=== PATIENT | female | born 1955 | race Caucasian/White ===

== ENCOUNTER 2019-05-08 08:30 | Outpatient (CLI) | payer BC, SELFPAY ==
[2019-05-08 09:58] LABS: Anion Gap 10.2 mmol/L (3-11); BUN 13 mg/dL (7-18); CO2 27.8 mmol/L (21.0-32.0); CREATININE 0.68 mg/dL (0.55-1.02); Calcium 8.6 mg/dL (8.5-10.1); Calculated LDL 113; Chloride 101 mmol/L (98-107); Cholesterol 192 mg/dL (50-200); Glucose 94 mg/dL (70-100); HDL Cholesterol 58 mg/dL (40-60); Potassium 4.1 mmol/L (3.5-5.1); Sodium 139 mmol/L (136-145); Triglyceride 109 mg/dL (30-150)
== END 2019-05-08 08:50 ==
PROVIDERS: PCP Family Medicine; Visit Provider Family Medicine
DX: I10 Essential (primary) hypertension (principal); Z00.00 Encounter for general adult medical examination without abnormal findings
CPT/HCPCS: 36415; 80048; 80061; 83721

== ENCOUNTER 2019-07-31 00:36 | Outpatient (CLI) | payer OTHER, SELFPAY ==
--- NOTE | 2019-07-31 14:56 | DI.US_ITS ---
SYMPTOM/DIAGNOSIS: BRADYCARDIA AND HYPOTENSION R43, TIA, DIZZINESS, GIDDINESS BILATERAL DUPLEX CAROTID ULTRASOUND: 07/31 Duplex evaluation of the carotid circulation was performed according to the usual protocol. There is minimal visible atheromatous plaque in the carotid bulb on the right. There are normal flow velocities in common internal and external carotid arteries bilaterally. There is bilateral antegrade vertebral flow. CONCLUSION: No evidence of a hemodynamically significant carotid stenosis.
== END 2019-07-31 00:56 ==
PROVIDERS: PCP Family Medicine; Visit Provider Family Medicine
DX: G45.9 Transient cerebral ischemic attack, unspecified (principal); R42 Dizziness and giddiness; R00.1 Bradycardia, unspecified; I95.9 Hypotension, unspecified
CPT/HCPCS: 93880

== ENCOUNTER 2019-08-04 01:32 | Outpatient (CLI) | payer OTHER, SELFPAY ==
--- NOTE | 2019-08-04 10:42 | MERGE_ITS ---
*[facility]* *[facility]* [address] [place] [address] Date of study: 08/04/2019 Transthoracic Echocardiography M-mode, complete 2D, complete spectral Doppler, and color Doppler *STUDY CONCLUSIONS* Summary: 1. Left ventricle: The cavity size was normal. Wall thickness was normal. Systolic function was at the lower limits of normal. The estimated ejection fraction was 50-55%. Wall motion was normal; there were no regional wall motion abnormalities. 2. Mitral valve: Mildly thickened leaflets. There was mild to moderate regurgitation. 3. Right ventricle: The cavity size was normal. Wall thickness was normal. Systolic function was normal. 4. Tricuspid valve: There was moderate regurgitation. *PATIENT PRESENTATION* Height: 160cm (63in ) S/D Pressure: 141 / 84 Weight: 73.5kg (161.7lb ) BSA: 1.83m^2 Test start time: 10:45 AM. Test stop time: 11:45 AM. PERFORMING Unknown CONSULTING Jorge A Blackmon ORDERING Jorge A Blackmon REFERRING Jorge A Blackmon PERFORMING [facility] DESIGN ENGINEERING MANAGER Argenis Kim *PROCEDURE DATA* Procedure information: This study was interpreted by [facility]. Pertinent images and digital data are archived for permanent storage and are available for subsequent review. Comparison was made to the study of 12/16/2012. Study status: Routine. Transthoracic echocardiography. M-mode, complete 2D, complete spectral Doppler, and color Doppler. A Transthoracic Echocardiogram was performed. Scanning was performed from the parasternal, apical, subcostal, and suprasternal notch acoustic windows. Images were obtained using an [employer] SC 2000 cardiac ultrasound machine. Image quality was adequate. Study completion: The patient tolerated the procedure well. There were no complications. History: PMH: Bradycardia, Palpitations, Hypotension. *CARDIAC ANATOMY* Left ventricle: The cavity size was normal. Wall thickness was normal. Systolic function was at the lower limits of normal. The estimated ejection fraction was 50-55%. Wall motion was normal; there were no regional wall motion abnormalities. Aortic valve: Trileaflet; normal thickness leaflets. Mobility was not restricted. Doppler: Transvalvular velocity was within the normal range. There was no stenosis. There was no significant regurgitation. VTI ratio of LVOT to aortic valve: 0.78. Valve area (VTI): 2.1cm^2. Indexed valve area (VTI): 1.2cm^2/m^2. Peak velocity ratio of LVOT to aortic valve: 0.68. Valve area (Vmax): 1.9cm^2. Indexed valve area (Vmax): 1cm^2/m^2. Mean velocity ratio of LVOT to aortic valve: 0.66. Valve area (Vmean): 1.8cm^2. Indexed valve area (Vmean): 1cm^2/m^2. Mean gradient (S): 3mm Hg. Peak gradient (S): 6.1mm Hg. Aorta: Aortic root: The aortic root was normal in size. Mitral valve: Mildly thickened leaflets. Mobility was not restricted. Doppler: Transvalvular velocity was within the normal range. There was no evidence for stenosis. There was mild to moderate regurgitation. Valve area by pressure half-time: 5cm^2. Indexed valve area by pressure half-time: 2.7cm^2/m^2. Peak gradient (D): 3.2mm Hg. Left atrium: The atrium was normal in size. Right ventricle: The cavity size was normal. Wall thickness was normal. Systolic function was normal. Pulmonic valve: Doppler: Transvalvular velocity was within the normal range. There was no evidence for stenosis. There was trivial regurgitation. Peak gradient (S): 1.6mm Hg. Tricuspid valve: Structurally normal valve. Doppler: Transvalvular velocity was within the normal range. There was no evidence for stenosis. There was moderate regurgitation. Pulmonary artery: Pulmonary systolic pressure was within the normal range, in the range of 25mm Hg to 30mm Hg. Right atrium: The atrium was normal in size. Pericardium: There was no pericardial effusion. Systemic veins: Inferior vena cava: The vessel was normal in size. Measurements Left ventricle Value Reference LV ID, ED, PLAX 4.8 cm 3.5 - 6.0 LV ID, ES, PLAX 3.4 cm 2.1 - 4.0 LV PW thickness, ED, PLAX 0.8 cm LV end-diastolic volume, 1-p A2C 71 ml LV ejection fraction, 1-p A2C 57 % LV end-diastolic volume, 1-p A4C 79 ml LV ejection fraction, 1-p A4C 53 % LV e', lateral 0.097 m/sec LV E/e', lateral 9 LV e', medial 0.137 m/sec LV E/e', medial 7 LV e', average 0.117 m/sec LV E/e', average 8 Ventricular septum Value Reference IVS thickness, ED, PLAX 0.9 cm LVOT Value Reference LVOT ID, A-P 1.9 cm LVOT area 2.8 cm^2 LVOT peak velocity, S 0.84 m/sec LVOT mean velocity, S 0.53 m/sec LVOT VTI, S 19.4 cm LVOT peak gradient, S 2.8 mm Hg LVOT mean gradient, S 1.4 mm Hg Stroke volume (SV), LVOT DP 54 ml Stroke index (SV/bsa), LVOT DP 29 ml/m^2 Aortic valve Value Reference Aortic valve peak velocity, S 1.2 m/sec Aortic valve mean velocity, S 0.8 m/sec Aortic valve VTI, S 25.0 cm Aortic mean gradient, S 3 mm Hg Aortic peak gradient, S 6.1 mm Hg VTI ratio, LVOT/AV 0.78 Aortic valve area, VTI 2.1 cm^2 Velocity ratio, peak, LVOT/AV 0.68 Aortic valve area, peak velocity 1.9 cm^2 Velocity ratio, mean, LVOT/AV 0.66 Aortic valve area, mean velocity 1.8 cm^2 Aortic valve area/bsa, mean velocity 1 cm^2/m^2 Aorta Value Reference Aortic root ID, ED 3.2 cm Ascending aorta ID, A-P, S 3.5 cm Left atrium Value Reference LA ID, A-P, ES 4.1 cm LA ID/bsa, A-P 2.2 cm/m^2 <=2.2 LA volume, ES, 2-p 61 ml LA volume/bsa, ES, 2-p 33 ml/m^2 LA/aortic root ratio 1.29 Mitral valve Value Reference Mitral E-wave peak velocity 0.89 m/sec Mitral A-wave peak velocity 0.59 m/sec Mitral deceleration time 153 ms 150 - 230 Mitral pressure half-time 44 ms Mitral peak gradient, D 3.2 mm Hg Mitral E/A ratio, peak 1.51 Mitral valve area, PHT, DP 5 cm^2 Tricuspid valve Value Reference Tricuspid regurg peak velocity 2.4 m/sec Tricuspid peak RV-RA gradient 23 mm Hg Right atrium Value Reference RA area, ES, A4C 18.8 cm^2 8.3 - 19.5 Pulmonic valve Value Reference Pulmonic peak gradient, S 1.6 mm Hg Legend: (L) and (H) razia values outside specified reference range. I have personally reviewed the images and have reviewed and edited the reported findings. Electronically signed by Jose Alexis 08/04/2019 13:43
== END 2019-08-04 01:52 ==
PROVIDERS: PCP Family Medicine; Visit Provider Family Medicine
DX: I95.9 Hypotension, unspecified; R00.2 Palpitations; R00.1 Bradycardia, unspecified; I34.0 Nonrheumatic mitral (valve) insufficiency; I36.1 Nonrheumatic tricuspid (valve) insufficiency
CPT/HCPCS: 93306

== ENCOUNTER 2019-08-24 01:59 | Outpatient (CLI) | payer OTHER, SELFPAY ==
--- NOTE | 2019-08-24 06:51 | DI.NM_ITS ---
APPROVED REPORT Exam: Exercise Treadmill Patient Location: Out-Patient Room/Bed: Stress Nurse: Jenniffer Diop RN Rhythm: Sinus rhythm. Indications: Chest pain, pt describes as an ache in her left breast. She also has frequent left shoul wanda pain that can radiates towards her left scapula. She believes these pains are muscular, but she i sn't sure. She states she is looking for a cardiac workout before she returns to her regular exercise routine, ie using her Eliptical machine. She states she has stopped exercising this past month due t o the chest discomfort. Medical History Medical History: HTN Medications: Hydrochlorothiazide. Allergies: NSAIDS. Oxycodone. Sertraline. Lisinopril. Cardiac Risk Factors: HTN Pretest Chest Pain Characteristics: Non-exertional Chest pain, Atypical angina Exercise History: Physically active Stress Test Details Test: Exercise stress testing was performed using a Akash protocol. Rest Isotope: Tc-99m Sestamibi. Dose: 11.5 Date: 08/24/2019 Injection Time: 0915 Stress Isotope: Tc-99m Sestamibi. Dose: 32.0 Date: 08/24/2019 Injection Time: 1220 HR Resting HR: 56 bpm Max Heart Rate (APMHR): 157 bpm Max HR Achieved: 141 bpm Target HR (85% APMHR): 133 bpm % of APMHR: 89 Recovery HR: 66 bpm HR response to stress: Normal HR response to stress BP Resting BP: 148/82 mmHg Max BP: 210/86 mmHg Recovery BP: 148/80 mmHg BP response to stress: Normal blood pressure response to stress. ECG Resting ECG: Sinus Rhythm Stress ECG: Sinus Tachycardia Maximum ST Deviation: 1.5 mm Arrhythmia: None Recovery ECG: Sinus Rhythm Recovery ST Change: none Recovery Arrhythmia: None Clinical Reason for Termination: Target HR Achieved Highest Stage Achieved: Stage 3: 3.4 mph at 14% grade. Exercise capacity: 10.18 METs Overall Exercise Capacity for Age: Excellent Scale: Active Stress ECG Conclusion 1. Patient showed good exercise tolerance 2. Imaging portion of study was normal. 3. EKG portion showed ST depressions in lateral leads during exercise. 4. Discordant findings between ECG and imaging 5. This likely demonstrates a normal study No prior study available for comparison.
== END 2019-08-24 02:19 ==
PROVIDERS: PCP Family Medicine; Visit Provider Family Medicine
DX: R07.9 Chest pain, unspecified (principal); I10 Essential (primary) hypertension
CPT/HCPCS: 78452; 93017

== ENCOUNTER 2020-05-07 01:43 | Outpatient (CLI) | payer OTHER, SELFPAY ==
[2020-05-07 09:08] LABS: Anion Gap 10.4 mmol/L (3-11); BUN 13 mg/dL (7-18); CO2 27.6 mmol/L (21.0-32.0); CREATININE 0.74 mg/dL (0.55-1.02); Calculated LDL 135 mg/dL (<100); Chloride 101 mmol/L (98-107); Cholesterol 227 mg/dL (<200); Glucose 98 mg/dL (74-106); HDL Cholesterol 63 mg/dL (40-60); Sodium 139 mmol/L (136-145); Triglyceride 149 mg/dL (<150)
== END 2020-05-07 02:03 ==
PROVIDERS: PCP Family Medicine; Visit Provider Family Medicine
DX: E78.5 Hyperlipidemia, unspecified (principal); I10 Essential (primary) hypertension
CPT/HCPCS: 36415; 80048; 80061

== ENCOUNTER 2020-05-21 08:01 | Outpatient (CLI) | payer OTHER, SELFPAY ==
[2020-05-24 02:14] LABS: SARS-CoV-2 RNA Undetected (Undetected); SARS-CoV-2 Specimen Source Nasopharynx
== END 2020-05-21 08:21 ==
PROVIDERS: PCP Family Medicine; Visit Provider Family Medicine
DX: Z11.59 Encounter for screening for other viral diseases (principal)
CPT/HCPCS: U0003

== ENCOUNTER 2020-09-30 08:09 | Outpatient (CLI) | payer MEDICARE, BC, SELFPAY ==
[2020-10-03 05:10] LABS: Patient Race White; SARS-CoV-2 RNA Undetected (Undetected); SARS-CoV-2 Specimen Source Nasal
== END 2020-09-30 08:29 ==
PROVIDERS: PCP Nurse Practitioner Family; Visit Provider Nurse Practitioner Family
DX: Z11.59 Encounter for screening for other viral diseases (principal)
CPT/HCPCS: U0003

== ENCOUNTER 2020-10-04 12:32 | Outpatient (REF) | payer MEDICARE, BC, SELFPAY ==
[2020-10-10 14:58] LABS: Anaplasma phagocytophilum Negative (Negative); B. miyamotoi PCR Negative (Negative); Babesia divergens/MO-1 Negative (Negative); Babesia duncani Negative (Negative); Babesia microti Negative (Negative); Ehrlichia chaffeensis Negative (Negative); Ehrlichia ewingii/canis Negative (Negative); Ehrlichia muris eauclairensis Negative (Negative); Lyme Ab w Rflx to Lyme Confirm Negative (Negative)
== END 2020-10-04 12:52 ==
LOC: LBN 12:32
PROVIDERS: PCP Nurse Practitioner Family; Visit Provider Nurse Practitioner Family
DX: N39.0 Urinary tract infection, site not specified (principal); S40.261A Insect bite (nonvenomous) of right shoulder, initial encounter
CPT/HCPCS: 87798; 86618; 87086

== ENCOUNTER 2020-10-11 22:39 | Outpatient (REF) | payer MEDICARE, BC, SELFPAY ==
[2020-10-11 21:47] LABS: Bilirubin Negative (Negative); Blood Trace-intact (Negative); Clarity Clear (Clear); Glucose Negative (Negative); Ketones Negative (Negative); Leukocyte Esterase Negative (Negative); Nitrite Negative (Negative); Urobilinogen 0.2 EU/dL (Up TO 0.2); pH 8.5 (5-8)
[2020-10-11 21:55] LABS: Bacteria Negative HPF (Negative); C & S Indicated? No; Casts Negative LPF (Negative); Crystals Negative HPF (Negative); Epithelial Cells Negative HPF (Negative); Mucus Negative (Negative); WBC Negative HPF (0-5)
== END 2020-10-11 22:59 ==
LOC: LBN 22:39
PROVIDERS: PCP Nurse Practitioner Family; Visit Provider Nurse Practitioner Family
DX: R35.0 Frequency of micturition (principal)
CPT/HCPCS: 81003; 81015

== ENCOUNTER 2020-12-19 01:58 | Outpatient (CLI) | payer MEDICARE, BC, SELFPAY ==
--- NOTE | 2020-12-19 12:54 | DI.MAMMO_ITS ---
EXAM: MG MAMMO SCREENING CLINICAL HISTORY: screening,Z12.39. TECHNIQUE: Bilateral full field digital CC and MLO mammographic images were obtained with 3D tomosyn thesis and utilizing computer aided detection (CAD). COMPARISON: Prior mammograms dating back to 2015, the most recent being August 2019. FINDINGS: No new significant radiograph findings in the right breast. In the left breast there are 2 subtle findings, both towards the upper outer quadrant. One of these is located 10 centimeter in the nipple, measures 8 x 4 millimeters and has appearance of subtle benig n lymph node but was not previously present on prior mammograms. The 2nd finding is 7 cm from the nipple, possibly very subtle 9 x 5 millimeter nodule. There are no malignant-appearing microcalcification groups in this region or elsewhere in either breast. There is no significant architectural distortion nor skin thickening-retraction. IMPRESSION: No radiographic evidence of malignancy in the right breast. Two subtle asymmetric left breast nodular densities, as described above. Recommend left breast ultra sound. BI-RADS Category 0 - Assessment Incomplete: Need additional imaging evaluation Breast Density - Category B - Scattered areas of fibroglandular density Breast density Category C or D implies that the patient has dense breast tissue. Dense breast tissue can make it harder to find cancer on a mammogram. Dense breast tissue is also associated with an incr eased risk of breast cancer. This information about the result of the mammogram report was provided to the patient to raise their awareness. Use this report when you speak with the patient about their risks for breast cancer, which includes their family history. At that time, you may recommend additional screening tests (Ultrasoun d or MRI) as these tests may add significant information. A negative radiographic report should not delay biopsy if a dominant or clinically suspicious mass is present. Up to ten percent of cancers are not identified on mammography. A negative report may reinforce clinical impression. Adenosis and dense breasts may obscure an underlying neoplasm. False positive reports average 6 to 10%. Patient will receive a letter notifying them of these results.
== END 2020-12-19 02:18 ==
PROVIDERS: PCP Nurse Practitioner Family; Visit Provider Nurse Practitioner Family
DX: Z12.31 Encounter for screening mammogram for malignant neoplasm of breast (principal); R92.8 Other abnormal and inconclusive findings on diagnostic imaging of breast
CPT/HCPCS: 77063; 77067

== ENCOUNTER 2020-12-23 02:53 | Outpatient (CLI) | payer MEDICARE, BC, SELFPAY ==
--- NOTE | 2020-12-23 15:46 | DI.MAMMO_ITS ---
EXAM: MG MAMMO SCREEN CALL BACK UNI and U/S breast LT limited CLINICAL HISTORY: F/U TO ABNL, ASYMMETRIC LT BREAST NODULAR DENSITY. TECHNIQUE: Craniocaudal and mediolateral oblique Full Field Digital Mammography views of the left br east with Computer Aided Diagnosis followed by Tomosynthesis and left breast ultrasound. COMPARISON: Priors available for comparison. FINDINGS: Mammography/Tomosynthesis: Masses/Architectural Distortion: Additional view of the left breast fails to show persistent discrete mass. Microcalcifictions: No suspicious pleomorphic-type are seen. Skin Thickening/Nipple Retraction: None. Left breast US: Echotexture: Normal appearance of the glandular tissue. Shadowing: No suspicious foci. Cyst: There is a 2 x 2 x 3 mm simple cyst at the 5 o'clock position of the left breast 5 cm from the nipple. Solid lesions: None seen. Ductal dilation: None. Left axilla: Benign appearing lymph nodes are seen in the left axilla. The largest measures 1.6 x 0. 7 cm. It would appear to correspond to the mammographic abnormality. IMPRESSION: 1. No evidence of malignancy is noted. 2. Unless there is more urgent need, follow-up screening mammography is recommended, as per [place] [employer] guidelines. 3. The findings were discussed with the patient on the date of the examination. BI-RADS Category 2 - Benign Findings Breast Density - Category B - Scattered areas of fibroglandular density Breast density Category C or D implies that the patient has dense breast tissue. Dense breast tissue can make it harder to find cancer on a mammogram. Dense breast tissue is also associated with an incr eased risk of breast cancer. This information about the result of the mammogram report was provided to the patient to raise their awareness. Use this report when you speak with the patient about their risks for breast cancer, which includes their family history. At that time, you may recommend additional screening tests (Ultrasoun d or MRI) as these tests may add significant information. A negative radiographic report should not delay biopsy if a dominant or clinically suspicious mass is present. Up to ten percent of cancers are not identified on mammography. A negative report may reinforce clinical impression. Adenosis and dense breasts may obscure an underlying neoplasm. False positive reports average 6 to 10%. Patient will receive a letter notifying them of these results.
== END 2020-12-23 03:13 ==
PROVIDERS: PCP Nurse Practitioner Family; Visit Provider Nurse Practitioner Family
DX: R92.8 Other abnormal and inconclusive findings on diagnostic imaging of breast (principal); N60.02 Solitary cyst of left breast
CPT/HCPCS: 76642; 77063; 77067

== ENCOUNTER 2021-03-19 03:06 | Outpatient (CLI) | payer MEDICARE, BC, SELFPAY ==
--- NOTE | 2021-03-19 08:45 | DI.DEXA_ITS ---
EXAM: XR DEXA BONE DENSITY W/WO LUANN CLINICAL HISTORY: SCREENING FOR OSTEOPOROSIS IN POSTMENOPAUSAL WOMAN,Z78.0 TECHNIQUE: Routine DEXA evaluation of the lumbar spine, hip, or forearm. COMPARISON: Prior DEXA scan performed September 2009 FINDINGS: Performed on a Stir unit. Lateral image: No compression fracture evident. Lumbar Spine total T-score: -2.7. Two thousand nine reading was -0.6 Hip total T-score:-1.9. Prior 2009 reading was -0.8 Independent reading at the level of the left femoral neck yields a T-score of -2.6. Prior 2009 readi ng was -1.9 Forearm total T-score: IMPRESSION: Bone mineral density measures in the osteoporosis range. Fracture risk is high. Note: Any spine fracture indicates 5x risk for subsequent spine fracture and 2x risk for subsequent h ip fracture. World Health Organization criteria for BMD interpretation classify patients: Normal...... T- Score at or above -1.0 Osteopenic... T- Score between -1.0 and -2.5 Osteoporosis... T-Score at or below -2.5
== END 2021-03-19 03:26 ==
PROVIDERS: PCP Nurse Practitioner Family; Visit Provider Nurse Practitioner Family
DX: Z78.0 Asymptomatic menopausal state (principal); M81.0 Age-related osteoporosis without current pathological fracture
CPT/HCPCS: 77080

== ENCOUNTER 2021-03-28 05:06 | Outpatient (RCR) | payer MEDICARE, BC, SELFPAY ==
[2021-03-28] MEDS: Normal Saline Flush 10 ML SYR IVP (13:13)
== END 2021-04-21 23:59 | disposition home or self-care (01) ==
LOC: INF 05:06
PROVIDERS: PCP Nurse Practitioner Family; Visit Provider Family Medicine
DX: M81.0 Age-related osteoporosis without current pathological fracture (principal)
CPT/HCPCS: 96365; J3489

== ENCOUNTER 2021-05-13 03:15 | Outpatient (CLI) | payer MEDICARE, BC, SELFPAY ==
[2021-05-13 08:32] LABS: Hemoglobin A1C 5.7 % (<5.7)
[2021-05-13 09:00] LABS: Anion Gap 9.8 mmol/L (3-11); BUN 16 mg/dL (7-18); CO2 26.2 mmol/L (21.0-32.0); CREATININE 0.6 mg/dL (0.55-1.02); Calcium 8.4 mg/dL (8.5-10.1); Calculated LDL 114 mg/dL (<100); Chloride 104 mmol/L (98-107); Cholesterol 195 mg/dL (<200); Glucose 86 mg/dL (74-106); HDL Cholesterol 56 mg/dL (40-60); Potassium 4.4 mmol/L (3.5-5.1); Sodium 140 mmol/L (136-145); Triglyceride 125 mg/dL (<150)
[2021-05-15 00:51] LABS: Vitamin D 25 Total 23.7 ng/mL (30-100)
== END 2021-05-13 03:16 | disposition home or self-care (01) ==
LOC: LBO 03:16
PROVIDERS: PCP Nurse Practitioner Family; Visit Provider Nurse Practitioner Family
DX: E78.5 Hyperlipidemia, unspecified (principal); M81.0 Age-related osteoporosis without current pathological fracture; I10 Essential (primary) hypertension; R73.03 Prediabetes
CPT/HCPCS: 36415; 80048; 80061; 82306; 83036

== ENCOUNTER 2021-09-30 09:24 | Outpatient (CLI) | payer MEDICARE, BC, SELFPAY ==
--- NOTE | 2021-09-30 09:00 | DI.US_ITS ---
Exam(s) US UPPER EXTREMITY VENOUS LT EXAM: US UPPER EXTREMITY VENOUS LT CLINICAL HISTORY: left arm pain/edema-rule out dvt, arm lt arm, M79.602. TECHNIQUE: Ultrasound examination of the left upper extremity venous system(s) is performed using gr ayscale, color-flow, and spectral Doppler analysis. COMPARISON: No exams were available for comparison FINDINGS: The left internal jugular, axillary, subclavian, cephalic, basilic, brachial, median cubital and radi al veins are patent without evidence of thrombosis. No soft tissue masses or focal fluid collections are seen sonographically. IMPRESSION: No left upper extremity DVT or superficial thrombophlebitis. DATA REPOSITORY:
== END 2021-09-30 09:44 ==
PROVIDERS: PCP Nurse Practitioner Family; Visit Provider Family Medicine
DX: M79.602 Pain in left arm (principal); R60.0 Localized edema
CPT/HCPCS: 93971

== ENCOUNTER 2022-04-08 02:05 | Outpatient (RCR) | payer MEDICARE, BC, SELFPAY ==
[2022-04-08] MEDS: ZOLEDRONIC ACID/MANNITOL/WATER 5 MG/100 ML BTL 300 MG IVPB (10:03)
[2022-04-08] MEDS: Normal Saline Flush 10 ML SYR IVP (10:19)
== END 2022-04-21 23:59 | disposition home or self-care (01) ==
LOC: INF 02:05
PROVIDERS: PCP Nurse Practitioner Family; Visit Provider Nurse Practitioner Family
DX: M81.0 Age-related osteoporosis without current pathological fracture (principal)
CPT/HCPCS: 96365; J3489

== ENCOUNTER 2022-07-31 01:52 | Outpatient (CLI) | payer MEDICARE, BC, SELFPAY ==
[2022-07-31 13:53] LABS: ALT 26 U/L (14-59); AST 27 U/L (15-37); Alkaline Phosphatase 71 U/L (46-116); Anion Gap 7.1 mmol/L (3-11); BUN 16 mg/dL (7-18); Bilirubin, Total 0.5 mg/dL (0.2-1.0); CO2 29.9 mmol/L (21.0-32.0); CREATININE 0.8 mg/dL (0.55-1.02); Calcium 9.2 mg/dL (8.5-10.1); Chloride 97 mmol/L (98-107); Estimated GFR 81.21 (mL/min/1.73m2); Glucose 91 mg/dL (74-106); Potassium 3.9 mmol/L (3.5-5.1); Sodium 134 mmol/L (136-145); Total Protein 8.3 g/dL (6.4-8.2)
== END 2022-07-31 01:53 | disposition home or self-care (01) ==
LOC: LBO 01:53
PROVIDERS: PCP Nurse Practitioner Family; Visit Provider Nurse Practitioner Family
DX: E66.9 Obesity, unspecified (principal)
CPT/HCPCS: 36415; 80053

== ENCOUNTER 2022-09-17 03:59 | Outpatient (CLI) | payer MEDICARE, BC, SELFPAY ==
[2022-09-17 08:45] LABS: Hemoglobin A1C 5.8 % (<5.7)
[2022-09-17 09:06] LABS: ALT 23 U/L (14-59); AST 20 U/L (15-37); Albumin 3.8 g/dL (3.4-5.0); Alkaline Phosphatase 72 U/L (46-116); BUN 19 mg/dL (7-18); Bilirubin, Total 0.4 mg/dL (0.2-1.0); CREATININE 0.8 mg/dL (0.55-1.02); Calcium 8.8 mg/dL (8.5-10.1); Chloride 102 mmol/L (98-107); Estimated GFR 80.71 (mL/min/1.73m2); Glucose 87 mg/dL (74-106); Potassium 3.9 mmol/L (3.5-5.1); Sodium 136 mmol/L (136-145); TSH (W/Ref FT4) 2.72 uIU/mL (0.36-3.74); Total Protein 7.7 g/dL (6.4-8.2)
== END 2022-09-17 04:00 | disposition home or self-care (01) ==
LOC: LBO 04:00
PROVIDERS: PCP Nurse Practitioner Family; Visit Provider Nurse Practitioner Family
DX: E66.3 Overweight (principal); I10 Essential (primary) hypertension; R73.03 Prediabetes
CPT/HCPCS: 36415; 80053; 83036; 84443

== ENCOUNTER 2023-04-09 01:46 | Outpatient (RCR) | payer MEDICARE, BC, SELFPAY ==
[2023-04-09] MEDS: ZOLEDRONIC ACID/MANNITOL/WATER 5 MG/100 ML BTL 300 MG IVPB (14:55)
[2023-04-09] MEDS: Normal Saline Flush 10 ML SYR IVP (14:59)
== END 2023-04-21 23:59 | disposition home or self-care (01) ==
LOC: INF 01:46
PROVIDERS: PCP Nurse Practitioner Family; Visit Provider Nurse Practitioner Family
DX: M81.0 Age-related osteoporosis without current pathological fracture (principal)
CPT/HCPCS: 96365; J3489

== ENCOUNTER 2023-05-07 00:51 | Outpatient (CLI) | payer MEDICARE, BC, SELFPAY ==
--- NOTE | 2023-05-07 14:50 | DI.DEXA_ITS ---
Exam(s) XR DEXA BONE DENSITY W/WO LUANN EXAM: XR DEXA BONE DENSITY W/WO LUANN CLINICAL HISTORY: screening for osteoporosis in postmenopausal woman,z78.0 TECHNIQUE: Routine DEXA evaluation of the lumbar spine, hip, or forearm. COMPARISON: CR XR DEXA BONE DENSITY W/WO LUANN from 03/19/2021 FINDINGS: Performed on a HoloREBIScan unit. Lateral image: No compression fracture evident. Lumbar Spine total T-score: -2.4. Prior 1020 reading was -2.7 Hip total T-score:-1.8. Prior 2020 reading was -1.9 Independent reading at the level of the femoral neck yields T-score of -2.6 Forearm total T-score: -3.8 IMPRESSION: Bone mineral density measures in the osteoporosis range. Fracture risk is high. Note: Any spine fracture indicates 5x risk for subsequent spine fracture and 2x risk for subsequent h ip fracture. World Health Organization criteria for BMD interpretation classify patients: Normal...... T- Score at or above -1.0 Osteopenic... T- Score between -1.0 and -2.5 Osteoporosis... T-Score at or below -2.5
== END 2023-05-07 01:11 ==
PROVIDERS: PCP Nurse Practitioner Family; Visit Provider Nurse Practitioner Family
DX: M81.0 Age-related osteoporosis without current pathological fracture (principal); Z78.0 Asymptomatic menopausal state; Z13.820 Encounter for screening for osteoporosis
CPT/HCPCS: 77080

== ENCOUNTER → 2023-11-05 00:41 | Outpatient (CLI) | payer MEDICARE, BC, SELFPAY ==
--- NOTE | 2023-11-05 08:45 | DI.MAMMO_ITS ---
Exam(s) MAMMO SCREENING EXAM: MAMMO SCREENING CLINICAL HISTORY: screening,Z12.39 TECHNIQUE: Bilateral full field digital CC and MLO mammographic images were obtained with 3D tomosyn thesis and utilizing computer aided detection (CAD). COMPARISON: Available for comparison. FINDINGS: Masses/Architectural Distortion: There is a new 4 mm nodule in the posterior upper right breast on th e MLO view. No areas of architectural distortion. Microcalcifications: No suspicious pleomorphic-type are seen. Skin Thickening/Nipple Retraction: None. IMPRESSION: 1. New 4 mm nodule in the posterior upper right breast on the MLO view. 2. Spot compression views requested for further evaluation. Limited right breast ultrasound may be o btained at that time. BI-RADS Category 0 - Assessment Incomplete: Need additional imaging evaluation Breast Density - Category B - Scattered areas of fibroglandular density Breast density category C or D implies that the patient has dense breast tissue. Dense breast tissue is very common and is not abnormal but dense breast tissue can make it harder to find cancer on a ma mmogram. Also, dense breast tissue may increase their breast cancer risk. This information about the result of the mammogram report was provided to the patient to raise their awareness. Use this report when you speak with the patient about their risks for breast cancer, which includes their family hist ory. At that time, you may recommend for more screening tests (Ultrasound or MRI) as they might be us eful based on their risk. A negative radiographic report should not delay biopsy if a dominant or clinically suspicious mass is present. Up to ten percent of cancers are not identified on mammography. A negative report may reinforce clinical impression. Adenosis and dense breasts may obscure an underlying neoplasm. False positive reports average 6 to 10%. Patient will receive a letter notifying them of these results.
== END ==
PROVIDERS: PCP Nurse Practitioner Family; Visit Provider Nurse Practitioner Family
DX: Z12.31 Encounter for screening mammogram for malignant neoplasm of breast (principal)
CPT/HCPCS: 77063; 77067

== ENCOUNTER → 2023-11-11 02:30 | Outpatient (CLI) | payer MEDICARE, BC, SELFPAY ==
--- NOTE | 2023-11-11 | DI.MAMMO_ITS ---
Exam(s) MG MAMMO SCREEN CALL BACK UNI US BREAST RT LIMITED EXAM: MG MAMMO SCREEN CALL BACK UNI and U/S breast RT limited CLINICAL HISTORY: F/U MAMMO, NEW 4 MM NODULE RT BREAST. TECHNIQUE: Craniocaudal and mediolateral oblique Full Field Digital Mammography views of the right b reast with Computer Aided Diagnosis followed by Tomosynthesis and right breast ultrasound. COMPARISON: Comparison is made with prior examinations. FINDINGS: Mammography/Tomosynthesis: Masses/Architectural Distortion: There is again seen a well-circumscribed nodule in the posterior kris tral right breast on the MLO additional view. No areas of architectural distortion are seen. Microcalcifictions: No suspicious pleomorphic-type are seen. Skin Thickening/Nipple Retraction: None. Limited right breast US: Echotexture: Normal appearance of the glandular tissue. Shadowing: No suspicious foci. Cyst: None. Solid lesions: None seen. Ductal dilation: None. IMPRESSION: 1. No definite evidence of malignancy is noted. The area of nodularity may represent an intraparenchy mal lymph node. 2. A six-month follow-up right mammogram is requested for re-evaluation. 3. The findings were discussed with the patient on the date of the examination. BI-RADS Category 3 - 6 month - Probably Benign Finding: Recommend follow-up imaging in 6 months Breast Density - Category B - Scattered areas of fibroglandular density Breast density Category C or D implies that the patient has dense breast tissue. Dense breast tissue can make it harder to find cancer on a mammogram. Dense breast tissue is also associated with an incr eased risk of breast cancer. This information about the result of the mammogram report was provided to the patient to raise their awareness. Use this report when you speak with the patient about their risks for breast cancer, which includes their family history. At that time, you may recommend additional screening tests (Ultrasoun d or MRI) as these tests may add significant information. A negative radiographic report should not delay biopsy if a dominant or clinically suspicious mass is present. Up to ten percent of cancers are not identified on mammography. A negative report may reinforce clinical impression. Adenosis and dense breasts may obscure an underlying neoplasm. False positive reports average 6 to 10%. Patient will receive a letter notifying them of these results.
== END ==
PROVIDERS: PCP Nurse Practitioner Family; Visit Provider Nurse Practitioner Family
DX: R92.8 Other abnormal and inconclusive findings on diagnostic imaging of breast (principal); Z12.31 Encounter for screening mammogram for malignant neoplasm of breast; R92.323 Mammographic fibroglandular density, bilateral breasts; N63.15 Unspecified lump in the right breast, overlapping quadrants
CPT/HCPCS: 76642; 77063; 77067

== ENCOUNTER 2023-12-31 02:33 | Outpatient (CLI) | payer MEDICARE, BC, SELFPAY ==
[2023-12-31 12:35] LABS: Hemoglobin A1C 5.7 % (<5.7)
[2023-12-31 12:40] LABS: ALT 29 U/L (14-59); AST 21 U/L (15-37); Albumin 3.8 g/dL (3.4-5.0); Alkaline Phosphatase 54 U/L (46-116); Anion Gap 9.3 mmol/L (3-11); BUN 17 mg/dL (7-18); Bilirubin, Total 0.5 mg/dL (0.2-1.0); CO2 28.7 mmol/L (21.0-32.0); CREATININE 0.8 mg/dL (0.55-1.02); Calcium 8.9 mg/dL (8.5-10.1); Calculated LDL 119 mg/dL (<100); Chloride 101 mmol/L (98-107); Cholesterol 213 mg/dL (<200); Estimated GFR 80.21 (mL/min/1.73m2); Glucose 96 mg/dL (74-106); HDL Cholesterol 70 mg/dL (40-60); Potassium 3.6 mmol/L (3.5-5.1); Sodium 139 mmol/L (136-145); Total Protein 7.7 g/dL (6.4-8.2); Triglyceride 121 mg/dL (<150)
[2024-01-01 11:46] LABS: Hepatitis C Ab w Rflx HCV PCR Negative (Negative)
== END 2023-12-31 02:34 | disposition home or self-care (01) ==
LOC: LOS 02:33
PROVIDERS: PCP Nurse Practitioner Family; Visit Provider Nurse Practitioner Family
DX: R73.03 Prediabetes (principal); Z00.00 Encounter for general adult medical examination without abnormal findings; E78.5 Hyperlipidemia, unspecified
CPT/HCPCS: 36415; 80053; 80061; 86803; 83036

== ENCOUNTER 2024-04-14 02:23 | Outpatient (RCR) | payer MEDICARE, BC, SELFPAY ==
[2024-04-14] MEDS: ZOLEDRONIC ACID/MANNITOL/WATER 5 MG/100 ML BTL 300 MG IVPB (13:00)
[2024-04-14] MEDS: Normal Saline Flush 10 ML SYR IVP (13:04)
== END 2024-04-21 23:59 | disposition home or self-care (01) ==
LOC: INF 02:23
PROVIDERS: PCP Nurse Practitioner Family; Visit Provider Nurse Practitioner Family
DX: M81.0 Age-related osteoporosis without current pathological fracture (principal)
CPT/HCPCS: 96365; J3489

== ENCOUNTER → 2024-05-12 00:01 | Outpatient (CLI) | payer MEDICARE, BC, SELFPAY ==
--- NOTE | 2024-05-12 07:45 | DI.MAMMO_ITS ---
Exam(s) MG MAMMO DIAGNOSTIC UNI EXAM: MG MAMMO DIAGNOSTIC UNI CLINICAL HISTORY: 6 month follow up rt, abnl mammo, R92.8 TECHNIQUE: Right cc and MLO mammogram images were performed according to the usual protocol inclu ding computer analysis with CAD system, tomosynthesis and C-view imaging. COMPARISON: MG 2D/3D BILATERAL SHADE ROUTINE SCREENING from 03/09/2017 MG BILATERAL ROUTINE 2D/3D SHADE SCREENING from 06/01/2018 MG BILATERAL ROUTINE 2D/3D SHADE SCREENING from 08/31/2019 MG MG MAMMO SCREENING from 12/19/2020 MG MG MAMMO SCREEN CALL BACK UNI from 12/23/2020 MG MG MAMMO SCREENING from 11/05/2023 US US BREAST RT LIMITED from 11/11/2023 MG MG MAMMO SCREEN CALL BACK UNI from 11/11/2023 FINDINGS: The right breast is composed of scattered fibroglandular densities, Breast Density category B. No suspicious masses or suspicious microcalcifications are seen. There has been slight the interva l decrease in size of the previously noted nodule, likely intramammary lymph node. No skin thickening or abnormal axillary lymph nodes are seen. IMPRESSION: BI-RADS Category 2 - Benign Findings Bilateral screening mammography recommended in 6 months. . Breast Density - Category B, scattered fibroglandular densities. A negative radiographic report should not delay biopsy if a dominant or clinically suspicious mass is present. Up to ten percent of cancers are not identified on mammography. A negative report may reinforce clinical impression. Adenosis and dense breasts may obscure an underlying neoplasm. False positive reports average 6 to 10%. Patient will receive a letter notifying them of these results.
== END ==
PROVIDERS: PCP Nurse Practitioner Family; Visit Provider Nurse Practitioner Family
DX: Z09 Encounter for follow-up examination after completed treatment for conditions other than malignant neoplasm (principal)
CPT/HCPCS: 77061; 77065; G0279

== ENCOUNTER 2024-05-12 18:51 | Outpatient (REF) | payer MEDICARE, BC, SELFPAY ==
--- NOTE | 2024-05-12 16:00 | SKI_PTH ---
PATIENT: Nanci Tomas LOC: [facility] U#:[id number] AGE/SX: 68/F ROOM: RE05/12/[address]: Zoila Ruggiero NP : [id number] BED: DIS: 05/12/2024 SPEC #: [id number] RECD: 05/15/24 12:46 STATUS: DEVAUGHN FARIAS #: [id number] FARZANA: 05/12/24 16:[address]: Zoila Ruggiero DEPT: Surgical Specimen RECD BY: Helen Limon ENTERED: 05/15/24 12:47 SP TYPE: SKI OT DR: ROMARIO Fernandes Tissues: 1 - SKIN BIOPSY(SHAVE/PUNCH) Procedures: SKIN LEVEL 4 Comments: [id number]
== END 2024-05-12 18:52 | disposition home or self-care (01) ==
LOC: LBN 18:51
PROVIDERS: PCP Nurse Practitioner Family; Visit Provider Nurse Practitioner Family
DX: L98.9 Disorder of the skin and subcutaneous tissue, unspecified (principal)
CPT/HCPCS: 88305

== ENCOUNTER 2024-11-07 01:58 | Outpatient (CLI) | payer MEDICARE, BC, SELFPAY ==
--- NOTE | 2024-11-07 07:34 | DI.MAMMO_ITS ---
Exam(s) MAMMO SCREENING EXAM: MAMMO SCREENING CLINICAL HISTORY: screening,z12.39 TECHNIQUE: Bilateral full field digital CC and MLO mammographic images were obtained with 3D tomosyn thesis and utilizing computer aided detection (CAD). COMPARISON: Available for comparison. FINDINGS: Masses/Architectural Distortion: There is a stable nodule seen in the central right breast on the MLO view. No new nodules are seen. No areas of architectural distortion are present. Microcalcifications: No suspicious pleomorphic-type are seen. Skin Thickening/Nipple Retraction: None. IMPRESSION: 1. No significant interval change with no specific features of malignancy noted. 2. Unless there is more urgent need, screening mammography is recommended, as per [employer] guidelines. BI-RADS Category 2 - Benign Findings Breast Density - Category B - Scattered areas of fibroglandular density Breast density category C or D implies that the patient has dense breast tissue. Dense breast tissue is very common and is not abnormal but dense breast tissue can make it harder to find cancer on a ma mmogram. Also, dense breast tissue may increase their breast cancer risk. This information about the result of the mammogram report was provided to the patient to raise their awareness. Use this report when you speak with the patient about their risks for breast cancer, which includes their family hist ory. At that time, you may recommend for more screening tests (Ultrasound or MRI) as they might be us eful based on their risk. A negative radiographic report should not delay biopsy if a dominant or clinically suspicious mass is present. Up to ten percent of cancers are not identified on mammography. A negative report may reinforce clinical impression. Adenosis and dense breasts may obscure an underlying neoplasm. False positive reports average 6 to 10%. Patient will receive a letter notifying them of these results.
== END 2024-11-07 02:18 ==
LOC: DI 01:58
PROVIDERS: PCP Nurse Practitioner Family; Visit Provider Nurse Practitioner Family
DX: Z12.31 Encounter for screening mammogram for malignant neoplasm of breast (principal); R92.8 Other abnormal and inconclusive findings on diagnostic imaging of breast; R92.323 Mammographic fibroglandular density, bilateral breasts; D24.1 Benign neoplasm of right breast
CPT/HCPCS: 77063; 77067

== ENCOUNTER 2025-01-11 00:21 | Outpatient (CLI) | payer MEDICARE, BC, SELFPAY ==
--- NOTE | 2025-01-11 06:30 | DI.NM_ITS ---
APPROVED REPORT Exam: Exercise Treadmill Patient Location: Out-Patient Room/Bed: Stress Nurse: Maegan Whalen RN Ordering Provider:ARMANDO LIULOTTIE, Contact Number: [phone] BMI: 27.98 Baseline Rhythm: Sinus Bradycardia Indications: VILLAREAL, decreased exercise tolerance Medical History Medical History: HLD, prediabetes, ANITA, insomnia, celiac disease, HTN, depression Cardiac Medications: hydrochlorothiazide, lorazepam, magnesium, valcyclovir Allergies: NSAIDs, sertraline, paroxetine, lisinopril, oxycodone Cardiac Risk Factors: family hx, prediabetes, HTN, HLD, former smoker Previous Cardiac Procedures: none Pretest Chest Pain Characteristics: No chest pain Exercise History: Physically active Physical Disabilities: none Lung Sounds: Clear to auscultation Heart Sounds: Bradycardia Stress Test Details Test: Exercise stress testing was performed using a Akash protocol. Nuclear Acquisition: Rest Tc-99m/Stress Tc-99m 1 day Rest Isotope: Tc-99m Sestamibi. Dose: 10.3 Date: 01/11/2025 Injection Time: 0905 Stress Isotope: Tc-99m Sestamibi. Dose: 32.0 Date: 01/11/2025 Injection Time: 1035 HR Resting HR Supine: 54 bpm Max Heart Rate (APMHR): 151 bpm Resting HR Standin bpm Target HR (85% APMHR): 128 bpm Max HR Achieved: 135 bpm % of APMHR: 89 Recovery HR: 63 bpm HR response to stress: Normal HR response to stress BP Resting BP Supine: 150/78 mmHg Resting BP Standin/76 mmHg Max BP: 184/80 mmHg Recovery BP: 124/72 mmHg BP response to stress: Normal blood pressure response to stress. ECG Resting ECG: Sinus Bradycardia Ectopy: none Stress ECG: Sinus Tachycardia ST Change: No significant ST segment changes noted Arrhythmia: rare PVCs Recovery ECG: Sinus Rhythm Recovery ST Change: No significant ST segment changes noted Recovery Arrhythmia: occasional PACs Clinical Reason for Termination: Target HR Achieved Stress Symptoms: Dyspnea Exercise duration: 08 min45 sec Highest Stage Reached: Stage 3: 3.4 mph at 14% grade. Exercise capacity: 10.16 METs Angina Score: None Sims Treadmill Score: 8.4 Rate Pressure Product: [id number] Stress ECG Conclusion 1. Resting electrocardiogram showed low voltage 2. Patient exercised on the Akash protocol and completed a workload of 10 METS 3. Normal heart rate and blood pressure response to exercise. The patient achieved 89% of maximal pr edicted heart rate for age 4. There was no electrocardiographic evidence of myocardial ischemia 5. There were no significant dysrhythmias 6. See MPI report Sims Treadmill Score is 8.4 which is Low risk. Stress Test Summary STAGE Time (mins) Speed (mph) Grade (%) HR BP SpO2 SYMPTOMS METS Supine 54 150/78 97 Standing 57 148/76 1 3 1.7 10 79 160/80 4.5 2 6 2.5 12 104 178/72 96 mild SOB 7 3 9 3.4 14 135 10 1 min recovery 94 184/80 3 min recovery 62 144/76 6 min recovery 63 124/72 98 symptoms resolved MPI Conclusion Myocardial perfusion is normal. There is no ischemia or evidence of prior infarction Ejection fraction is 66% with normal wall motion
== END 2025-01-11 00:41 ==
PROVIDERS: PCP Nurse Practitioner Family; Visit Provider Internal Medicine Cardiovascular Disease
DX: R06.09 Other forms of dyspnea (principal)
CPT/HCPCS: 36415; 78452; 80048; 80061; 82306; 85027; 86704; 86706; 87340; 87389; 93016; 93018; 83036; 93017

== ENCOUNTER 2025-01-11 01:20 | Outpatient (CLI) | payer MEDICARE, BC, SELFPAY ==
[2025-01-11 08:53] LABS: HCT 45.5 % (36.0-46.0); HGB 14.7 g/dL (11.2-15.7); MCH 28.5 pg (27.0-33.0); MCHC 32.3 % (32.0-36.0); MCV 88 fL (80-95); MPV 9.7 fL (8.0-11.0); Platelet Count 238 10^3/uL (130-400); RBC 5.16 10^6/uL (3.93-5.22); RDW 11.9 % (11.7-14.6); RDW-SD 38.7 fL; WBC 6.12 10^3/uL (4.4-10.8)
[2025-01-11 10:47] LABS: Anion Gap 5.6 mmol/L (3-11); BUN 16 mg/dL (7-18); CO2 30.4 mmol/L (21.0-32.0); CREATININE 0.9 mg/dL (0.55-1.02); Calcium 9.1 mg/dL (8.5-10.1); Calculated LDL 121 mg/dL (<100); Chloride 103 mmol/L (98-107); Cholesterol 218 mg/dL (<200); Glucose 94 mg/dL (74-106); HDL Cholesterol 71 mg/dL (40-60); Potassium 3.9 mmol/L (3.5-5.1); Sodium 139 mmol/L (136-145); Triglyceride 132 mg/dL (<150); Vitamin D 25 Total 34.4 ng/mL (30-100)
[2025-01-11 14:46] LABS: Hemoglobin A1C 5.7 % (<5.7)
[2025-01-11 19:12] LABS: HIV-1/2 Ag & Ab Screen Negative (Negative)
[2025-01-11 19:15] LABS: HBs Antibody, Quant 22.8 mIU/mL (See Note); Hep B Surface Ab Positive (See Note); Hepatitis B Core Antibody Negative (Negative); Hepatitis B Surface Antigen Negative (Negative)
== END 2025-01-11 01:21 | disposition home or self-care (01) ==
LOC: LBO 01:21
PROVIDERS: PCP Nurse Practitioner Family; Visit Provider Nurse Practitioner Family
DX: E78.5 Hyperlipidemia, unspecified (principal); M81.0 Age-related osteoporosis without current pathological fracture; R73.03 Prediabetes; Z11.59 Encounter for screening for other viral diseases; Z11.4 Encounter for screening for human immunodeficiency virus [HIV]
CPT/HCPCS: 36415; 80048; 80061; 82306; 85027; 86704; 86706; 87340; 87389; 83036

== ENCOUNTER 2025-01-25 02:11 | Outpatient (CLI) | payer MEDICARE, BC, SELFPAY ==
--- NOTE | 2025-01-25 08:00 | DI.RAD_ITS ---
Exam(s) XR FOOT RT COMPLETE EXAM: XR FOOT RT COMPLETE CLINICAL HISTORY: Right foot pain,m79.671. TECHNIQUE: 2D digital imaging was performed. Three views. COMPARISON: No exams were available for comparison FINDINGS: BONES: No acute fracture is present. No bony destructive lesion is seen. Two screws are noted in the 1st metatarsal. Heel spurs. JOINTS: No dislocation present. Degenerative changes at the tarsal metatarsal joints and distal inte rphalangeal joint of the 2nd toe. SOFT TISSUE: Normal. IMPRESSION: Postsurgical and degenerative changes. Heel spurs. DATA REPOSITORY: RADIATION DOSE DELIVERED:
--- NOTE | 2025-01-25 08:00 | DI.RAD_ITS ---
Exam(s) XR FOOT LT COMPLETE EXAM: XR FOOT LT COMPLETE CLINICAL HISTORY: Left foot pain,m79.672. TECHNIQUE: 2D digital imaging was performed. Three views. COMPARISON: CR XR FOOT RT COMPLETE from 01/25/2025 FINDINGS: BONES: No acute fracture is present. No bony destructive lesion is seen. Small heel spurs. JOINTS: No dislocation present. Mild degenerative changes at the tarsal metatarsal joints and navic ular cuneiform joints. Plantar arch is maintained. SOFT TISSUE: Normal. IMPRESSION: Degenerative changes and small heel spurs. DATA REPOSITORY: RADIATION DOSE DELIVERED:
== END 2025-01-25 02:31 ==
LOC: DI 02:11
PROVIDERS: PCP Nurse Practitioner Family; Visit Provider Podiatrist
DX: M79.671 Pain in right foot (principal); M79.672 Pain in left foot; Z98.890 Other specified postprocedural states
CPT/HCPCS: 73630

== ENCOUNTER 2025-03-02 00:19 | Outpatient (CLI) | payer MEDICARE, BC, SELFPAY ==
--- NOTE | 2025-03-02 | DI.US_ITS ---
Exam(s) US PELVIS TRANSVAGINAL EXAM: US PELVIS TRANSVAGINAL CLINICAL HISTORY: R10.2 Pelvic pain TECHNIQUE: Transabdominal and transvaginal imaging was performed using standard protocol. COMPARISON: No exams were available for comparison FINDINGS: The bladder is unremarkable. UTERUS: Retroflexed. 4.1 x 1.7 x 3.6 cm Endometrium: 2 mm Myometrium: Fibroid measuring 1.7 cm. 9 millimeter fibroid posterior. Right sided echogenic, slight ly pedunculated fibroid measuring 1.4 cm. Cervix: Unremarkable. OVARIES: Not visualized . CUL-DE-SAC: Free fluid: None. IMPRESSION: 1. Normal size uterus. Three small fibroids are identified. Endometrium appears normal.. 2. The ovaries were not visualized. DATA REPOSITORY:
== END 2025-03-02 00:39 ==
LOC: DI 00:19
PROVIDERS: PCP Nurse Practitioner Family
DX: R10.2 Pelvic and perineal pain (principal)
CPT/HCPCS: 76830; 76856

== ENCOUNTER → 2025-03-08 14:03 | Outpatient (BNVA) | payer MEDICARE, BC, SELFPAY | PROVIDERS: PCP Nurse Practitioner Family; Referring Provider Nurse Practitioner Family; Visit Provider Podiatrist | DX: M72.2 Plantar fascial fibromatosis (principal); M79.671 Pain in right foot; M79.672 Pain in left foot; M67.01 Short Achilles tendon (acquired), right ankle; M67.02 Short Achilles tendon (acquired), left ankle; M79.2 Neuralgia and neuritis, unspecified | CPT/HCPCS: 99213 ==

== ENCOUNTER 2025-05-23 12:27 | Outpatient (CLI) | payer MEDICARE, BC, SELFPAY ==
[2025-05-24 11:26] LABS: Lyme Ab w Rflx to Lyme Confirm Negative (Negative)
[2025-05-26 15:10] LABS: B. miyamotoi PCR Negative (Negative); Babesia divergens/MO-1 Negative (Negative); Ehrlichia muris eauclairensis Negative (Negative)
== END 2025-05-23 12:28 | disposition home or self-care (01) ==
LOC: LBO 12:36
PROVIDERS: Nurse Practitioner Family; PCP Nurse Practitioner Family; Visit Provider Nurse Practitioner Family
DX: M79.10 Myalgia, unspecified site (principal)
CPT/HCPCS: 36415; 87798; 86618

== ENCOUNTER → 2025-05-30 08:04 | Outpatient (BNVA) | payer MEDICARE, BC, SELFPAY | PROVIDERS: PCP Nurse Practitioner Family; Referring Provider Nurse Practitioner Family; Visit Provider Podiatrist | DX: M79.671 Pain in right foot (principal); M79.672 Pain in left foot; M72.2 Plantar fascial fibromatosis; M67.01 Short Achilles tendon (acquired), right ankle; M67.02 Short Achilles tendon (acquired), left ankle; M79.2 Neuralgia and neuritis, unspecified | CPT/HCPCS: 99213 ==

== ENCOUNTER 2025-07-12 08:09 | Outpatient (CLI) | payer MEDICARE, BC, SELFPAY ==
--- NOTE | 2025-07-12 15:00 | DI.DEXA_ITS ---
Exam(s) XR DEXA BONE DENSITY W/WO LUANN EXAM: XR DEXA BONE DENSITY W/WO LUANN CLINICAL HISTORY: re-eval osteoporosis Z78.0 ASYMPTOMATIC MENOPAUSAL STATE TECHNIQUE: [employer] C densitometer analysis of left hip, lumbar spine and right forearm. Lateral survey image of the thoracic and lumbar spine. COMPARISON: DX DEXA BONE DENSITY WITH LUANN from 09/30/2009 CR XR DEXA BONE DENSITY W/WO LUANN from 03/19/2021 CR XR DEXA BONE DENSITY W/WO LUANN from 05/07/2023 FINDINGS: Lateral view of the thoracic and lumbar spine shows no evidence of compression fractures. Bone mineral density measurements of the lumbar spine correspond to a total T- score of -2.6, in the osteoporotic range. This represents a 3.9 percent decrease from 2022 and a 13.2 percent decrease from 2008. Bone mineral density measurements of the left hip correspond to a total T-score of -1.7. This is not significantly changed from 2022 but represents a 12.8 percent decrease from 2008 the femoral neck T-score is -2.8, in the osteoporotic range. Theright forearm bone mineral density measurements correspond to a T-score of the distal 3rd of -3.8, in the osteoporotic range. This is not significantly changed from 2022. The forearm was not analyzed on the other 2 prior exams. IMPRESSION: Osteoporosis of the spine, hip and forearm.
== END 2025-07-12 08:29 ==
LOC: DI 08:09
PROVIDERS: PCP Nurse Practitioner Family; Visit Provider Nurse Practitioner Family
DX: M81.0 Age-related osteoporosis without current pathological fracture (principal); Z78.0 Asymptomatic menopausal state
CPT/HCPCS: 77080

== ENCOUNTER 2025-08-10 00:18 | Outpatient (RCR) | payer MEDICARE, BC, SELFPAY ==
[2025-08-10] MEDS: Normal Saline Flush 10 ML SYR IVP (13:45)
== END 2025-08-21 23:59 | disposition home or self-care (01) ==
LOC: INF 00:18
PROVIDERS: PCP Nurse Practitioner Family; Visit Provider Nurse Practitioner Family
DX: M81.0 Age-related osteoporosis without current pathological fracture (principal)
CPT/HCPCS: 96365; J3489